=== PATIENT | female | born 1995 | race Caucasian/White ===

== ENCOUNTER 2018-03-28 20:35 | Emergency (ER) | payer SELFPAY ==
--- NOTE | 2018-03-28 20:45 | EDPHY ---
H & P Time Seen by Provider: 03/28/18 20:42 HPI/ROS: CHIEF COMPLAINT: Abdominal pain and vomiting HISTORY OF PRESENT ILLNESS: This is a 22-year-old female who presents with abdominal pain and vomiting. She has a complex medical history. She was diagnosed with fibromyalgia at the [facility] about 6 months ago. She states that her pain is so intense that she has syncope. Usually her fibromyalgia pain is in her back. She takes Lyrica and Cymbalta for her fibromyalgia pain. She has a history of menorrhagia and was advised to have a hysterectomy because of heavy periods. She underwent laparoscopic hysterectomy on December 12 of this year. She states that she fainted last week, striking her abdomen. She was having abdominal pain and saw her PCP in [place], NEGAR Burden. She was given OxyCodone by NEGAR Burden for treatment of the abdominal pain. Today she has had worsening abdominal pain and vomiting. She has been unable to take any of her medications and unable to keep the OxyCodone down. She has not had fever. She has not had diarrhea. She denies urinary symptoms. She has had vaginal spotting for the past week and states that this bleeding became heavier tonight. She reports streaks of blood on the tissue when she uses the bathroom. [facility] shows the following prescriptions for oxycodone: Oxycodone 5 mg dispense 10 on 03/20/2018 Oxycodone 5 mg dispense 10 on 02/22/2018 Oxycodone 5 mg dispense 115 on 12/19/2017 Oxycodone 5 mg dispense 30 on 12/14/2017 She tells me that she has used this medication only for pain other than her fibromyalgia pain. The 115 pills that were prescribed to her in December or reportedly because of her recent hysterectomy and postoperative infection -- she was apparently given keflex for this so I think it was a cellulitis, not an intra-abdominal abscess. She also states that she had pancreatitis at that time. REVIEW OF SYSTEMS: A ten system review of systems was performed and is negative with the exception of the items mentioned in the HPI. Past medical history: 1. Fibromyalgia 2. Serotonin syndrome Past surgical history: Laparoscopic hysterectomy in December of 2017, C-sect x two Social history: She is . She lives in [facility]. General Appearance: Alert. Vital signs reviewed. Eyes: Pupils equal and round, no conjunctival injection, no discharge. Anicteric. ENT, Mouth: Mucous membranes are moist, no oropharyngeal erythema or edema. Neck: No lymphadenopathy, supple. Respiratory: Lungs are clear to auscultation; no wheezes, rales, or rhonchi. Cardiovascular: Regular rate and rhythm; no murmur, rub, or gallop. Gastrointestinal: Abdomen is soft moderately diffusely tender, no guarding, no masses or organomegaly, bowel sounds normal. Pelvic: Speculum exam was performed. There is no blood in the vaginal vault. Skin: Warm and dry, no rashes on exposed skin, normal color. Back: Nontender to palpation over the thoracolumbar spine. No CVAT. Extremities: No lower extremity edema, no calf tenderness or swelling. Neurological: Alert and oriented. Moving all four extremities easily and equally. Psychiatric: Normal affect. Constitutional: Initial Vital Signs Temperature (C) 36.9 C 03/28/18 20:55 Heart Rate 121 H 03/28/18 20:55 Respiratory Rate 16 03/28/18 20:55 Blood Pressure 152/96 H 03/28/18 20:55 O2 Sat (%) 96 03/28/18 20:55 O2 Delivery Mode Room Air Allergies/Adverse Reactions: acetaminophen [From Tylenol] Allergy (Verified 03/28/18 20:52) fentanyl Allergy (Verified 03/28/18 20:52) ondansetron [From Zofran] Allergy (Verified 03/28/18 20:52) iv contrast dye Allergy (Uncoded 03/28/18 20:52) Home Medications: Medication Instructions Recorded Cholecalciferol (Vitamin D3) 03/28/18 [Vitamin D3] DULoxetine [Cymbalta 30 MG (*)] 03/28/18 Pregabalin [Lyrica 100mg (*)] 03/28/18 Promethazine HCl [Phenergan 12.5mg 03/28/18 tab] Promethazine HCl [Phenergan] 25 mg RC Q8 PRN #10 supp.rect 03/28/18 diphenhydrAMINE HCL [Benadryl] 03/28/18 oxyCODONE HCL/ACETAMINOPHEN 03/28/18 [Percocet 5-325 mg Tablet] Medical Decision Making ED Course/Re-evaluation: She received 1 L IV fluid normal saline, Phenergan 12.5 mg IV, Dilaudid 0.5 mg IV, and Benadryl 25 mg IV after my assessment. Blood work showed potassium 2.6 with a repeat potassium of 3. Hemoglobin and hematocrit are within normal limits. White blood cell count is normal. Urinalysis shows a trace of blood but is otherwise negative/normal. Nothing to suggest urinary tract infection/pyelonephritis. She was re-evaluated at 10:25 p.m.. She continues to complain of abdominal pain. A 2nd dose of Dilaudid 0.5 mg IV has been ordered. She is also receiving his 2nd dose of Benadryl 25 mg I V. On reexamination her abdomen continues to be mildly to moderately diffusely tender. There is no guarding. She remains tachycardic. She tells me that she usually has a rapid heart rate when she is in pain. She is not hypotensive. She has no fever. I think the likelihood of an intra-abdominal abscess this far out from her surgery is low. She has had an episode of pancreatitis in the past. Liver functions unremarkable. Lipase was not sent. She does not have much in the way of midepigastric pain. At 10:45 p.m. she is requesting more pain medicine. Will try ketamine IV. On reexamination, there is no change. CT scan of the abdomen and pelvis ordered. She has had a previous reaction to IV contrast--lip swelling--that resolved with treatment. She will be pretreated with Solu-Medrol and Benadryl. Re eval after CT (which is normal per phone report of Dr. Leon with exception of bilateral ovarian cysts, no free fluid, evidence of hysterectomy): She states that she is still in pain. The ketamine helped initially but now her pain is resurfacing. Her abdominal exam remains unchanged with diffuse tenderness, somewhat worse in the left lower quadrant, no guarding. She has not vomited in the emergency department. She would like to try ice chips and a saltine cracker. She tolerated PO. She was given oral potassium which she has been slowly drinking. She received two liters of NS with improvement in heart rate, but continued with mild tachycardia. Narcotic withdrawal is in my differential. I have not found evidence of an abdominal pathology that would require surgery. She has a history of abdominal pain of unclear etiology and history of chronic pain syndrome (fibromyalgia). I do not recommend additional imaging studies. I do not find evidence of vaginal bleeding on pelvic exam (one of her presenting complaints). I was initially unable to access [facility] to review past records but was able to do so late in the course of her ED visit. Review of records in [facility] show that was she was seen in the emergency department at [facility] on March 08 and March 09 with complaints similar to today's. She was on a "no narcotics" status at [facility] two years ago. Her HEAD GREENSKEEPER, Jenise, sent a letter to [facility] ED stating that Ms. Barger is not drug seeking. However, that perception persists and it is my perception also. I have spoken with her about this. I have explained her that she will not receive any more opiates in this emergency department. Differential Diagnosis: I considered a ddx that includes but is not limited to chronic pain syndrome, intra-abdominal abscess, appendicitis, urinary tract infection/pyelonephritis, drug-seeking behavior. - Data Points Laboratory Results: Laboratory Results 03/28/18 21:11 Medications Given: Discontinued Medications Diphenhydramine HCl (Benadryl Injection) 25 mg IVP EDNOW ONE Stop: 03/28/18 21:15 Last Admin: 03/28/18 21:24 Dose: 25 mg Diphenhydramine HCl (Benadryl Injection) 25 mg IVP EDNOW ONE Stop: 03/28/18 22:26 Last Admin: 03/28/18 22:32 Dose: 25 mg Hydromorphone HCl (Dilaudid) 0.5 mg IVP EDNOW ONE Stop: 03/28/18 21:14 Last Admin: 03/28/18 21:24 Dose: 0.5 mg Hydromorphone HCl (Dilaudid) 0.5 mg IVP EDNOW ONE Stop: 03/28/18 21:56 Last Admin: 03/28/18 22:02 Dose: 0.5 mg Sodium Chloride (Ns) 1,000 mls @ 0 mls/hr IV EDNOW ONE; Wide Open PRN Reason: Protocol Stop: 03/28/18 20:52 Last Admin: 03/28/18 21:12 Dose: 1,000 mls Sodium Chloride (Ns) 1,000 mls @ 0 mls/hr IV EDNOW ONE; Wide Open PRN Reason: Protocol Stop: 03/28/18 23:37 Last Admin: 03/28/18 23:36 Dose: 1,000 mls Ketamine HCl (Ketamine) 14 mg IVP EDNOW ONE Stop: 03/28/18 22:56 Last Admin: 03/28/18 23:03 Dose: 14 mg Ketamine HCl (Ketamine) 14.5 mg 0.2 mg/kg (14.5 mg) IVP EDNOW ONE Stop: 03/28/18 23:55 Last Admin: 03/29/18 00:00 Dose: 14.5 mg Methylprednisolone Sodium Succinate (Solu-Medrol) 125 mg IVP EDNOW ONE Stop: 03/28/18 22:54 Last Admin: 03/28/18 23:02 Dose: 125 mg Potassium Chloride (Potassium Chloride Oral Liquid) 20 meq PO EDNOW ONE Stop: 03/28/18 21:56 Last Admin: 03/28/18 22:32 Dose: 20 meq Promethazine HCl (Phenergan) 12.5 mg IVP EDNOW ONE Stop: 03/28/18 21:14 Last Admin: 03/28/18 21:24 Dose: 12.5 mg Promethazine HCl (Phenergan) 12.5 mg IVP ONCE ONE Stop: 03/28/18 22:54 Last Admin: 03/28/18 23:02 Dose: 12.5 mg Promethazine HCl (Phenergan 25 Mg Prepack #4) 1 btl TAKEHOME EDNOW ONE Stop: 03/28/18 23:58 Last Admin: 03/29/18 00:27 Dose: 1 btl Point of Care Test Results: CBC CBC Collection Date 03/28/18 CBC Collection Time 21:11 WBC 7.1 RBC 5.12 HGB 13.2 HCT 41 PLT 230 Neut # 3.5 Neut 49.3 LYMPH # 3 LYMPH 42 Other WBC # 0.6 Other WBC 8.7 MCV 80.1 Chemistry 03/28/18 03/28/18 03/28/18 21:45 21:33 21:16 POC Sodium 140 mEq/L mEq/L 142 mEq/L mEq/L (135-145) (135-145) POC Potassium 3.0 mEq/L L mEq/L 2.6 mEq/L L* mEq/L (3.3-5.0) (3.3-5.0) POC Chloride 102 mEq/L mEq/L 102.0 mEq/L mEq/L (97-110) (97-110) POC Total CO2 23 mEq/L mEq/L (22-31) POC BUN 11 mg/dL mg/dL 10 mg/dL mg/dL (7-23) (7-23) POC Creatinine 0.8 mg/dL mg/dL 0.7 mg/dL mg/dL (0.6-1.0) (0.6-1.0) POC Glucose 90 mg/dL mg/dL 93 mg/dL mg/dL (70-100) (70-100) POC Calcium 8.9 mg/dL mg/dL (8.5-10.4) POC Total Bilirubin 0.4 mg/dL mg/dL (0.1-1.4) POC GGT 40 IU/L IU/L (5-65) POC AST 49 IU/L H IU/L (14-46) POC ALT 33 IU/L IU/L (9-52) POC Alk Phosphatase 120 IU/L IU/L (38-126) POC Total Protein 7.2 g/dL g/dL (6.3-8.2) POC Albumin 4.1 g/dL g/dL (3.5-5.0) POC Amylase 58 IU/L IU/L (30-110) ISTAT H&H 03/28/18 21:45 POC Hgb 13.6 gm/dL gm/dL (12.6-16.3) POC Hct 40 % % (38-47) Basic Metabolic Panel BMP Collection Date 03/28/18 BMP Collection Time 21:11 Liver Function Tests LFT Collection Date 03/28/18 LFT Collection Time 21:11 Urine Dip Collection Date 03/28/18 Collection Time 22:25 Specific [place] (1.002-1.030) 1.020 PH (5.0-7.5) 6.0 Leukocytes (Negative) Negative Nitrites (Negative) Negative Protein (Negative) Negative Glucose (Negative) Negative Ketones (Negative) Negative Urobilnogen (0.2-1.0 EU) 0.2 Bilirubin (Negative) Negative Blood (Negative) Trace Departure - Departure Disposition: Home, Routine, Self-Care Clinical Impression: Hypokalemia, Tachycardia Abdominal pain Qualifiers: Abdominal location: generalized Qualified Code(s): R10.84 - Generalized abdominal pain Condition: Fair Instructions: Promethazine (Into the rectum), Hypokalemia (ED), Abdominal Pain (ED), Tachycardia (ED) Additional Instructions: As you know, we have not found a cause for your abdominal pain. The CT scan of your abdomen and pelvis was normal. Your potassium was slightly low. Use the Phenergan suppositories for nausea. Please contact your primary care provider, nurse practitioner Jenise, tomorrow. Let her know about tonight's visit to the emergency department. As we discussed, I think you would benefit from seeing a pain specialist. Ketamine is the medication that helped you the most tonight. Referrals: Jorge Mishra MD [Medical Doctor] - As per Instructions Prescriptions: Promethazine HCl [Phenergan] 25 mg RC Q8 PRN #10 supp.rect PRN Reason: nausea and vomiting
[2018-03-28] MEDS ORDERED: NS 1,000 ML IV ONE ×2 (20:51→23:36)
[2018-03-28] MEDS ORDERED: PROMETHAZINE HCL 25 MG/ML INJ IVP ONE ×2 (21:13→22:53)
[2018-03-28] MEDS ORDERED: HYDROmorphONE/DILAUDID 2 MG/ML INJ IVP ONE ×2 (21:13→21:55)
[2018-03-28] MEDS ORDERED: POTASSIUM CL 20 MEQ/15 ML UDCUP PO ONE (21:55)
[2018-03-28] MEDS ORDERED: methylPREDNISolone SOD SUCC 125 MG/2 ML VIAL IVP ONE (22:53)
[2018-03-28] MEDS ORDERED: KETAMINE 200 MG/20 ML VIAL IVP ONE (22:55)
[2018-03-28] MEDS ORDERED: IOPAMIDOL (ISOVUE-300) 100 ML BTL ONE (23:04)
[2018-03-28] MEDS ORDERED: KETAMINE 500 MG/10 ML VIAL IVP ONE (23:54)
[2018-03-28] MEDS ORDERED: PROMETHAZINE 25 MG PREPACK #4 BTL TAKEHOME ONE (23:57)
[2018-03-29 00:32] VITALS: BP 127/73
== END 2018-03-29 00:33 | disposition home or self-care (01) ==
LOC: CED 20:35
DX: R10.84 Generalized abdominal pain (principal); E87.6 Hypokalemia; R00.0 Tachycardia, unspecified; R11.0 Nausea; M79.7 Fibromyalgia
CPT/HCPCS: 74177-PO; 80048-PO; 80076-PO; 82150-PO; 82435-PO; 82565-PO; 82947-PO; 84132-PO; 84295-PO; 84520-PO; 85014-PO; 96374; J1170; J1200; J2550; J2930; Q9967